=== PATIENT | male | born 1995 | race African-American/Black ===

== ENCOUNTER 2021-04-23 07:48 | Emergency (ER) | payer MEDICAID, OTHER ==
[~2021-04-23] VITALS: Ht 190.5 cm; Wt 104.3 kg
[2021-04-23 08:34] VITALS: BP 122/78
[2021-04-23] MEDS ORDERED: AMOX-277 PO (09:47)
== END 2021-04-23 09:55 | disposition home or self-care (01) ==
LOC: ER 07:48
DX: J32.9 Chronic sinusitis, unspecified (principal); H92.03 Otalgia, bilateral; Z79.2 Long term (current) use of antibiotics